=== PATIENT | female | born 1935 | race Asian ===

== ENCOUNTER → 2016-11-18 | Outpatient (CLI) | payer OTHER, MEDICAID | LOC: BRMIMAGING 08:33 | PROVIDERS: ATTEND Family Medicine | DX: Z13.820 Encounter for screening for osteoporosis (principal); Z78.0 Asymptomatic menopausal state; E07.9 Disorder of thyroid, unspecified ==

== ENCOUNTER → 2018-04-27 | Outpatient (CLI) | payer OTHER, MEDICAID | LOC: BRMIMAGING 12:21 | PROVIDERS: ATTEND Physician Assistant Medical | DX: M19.019 Primary osteoarthritis, unspecified shoulder (principal) | CPT/HCPCS: 73030-PO ==